=== PATIENT | female | born 1960 | race Caucasian/White ===

== ENCOUNTER 2017-11-11 11:00 | Outpatient (RCR) | payer OTHER, SELFPAY ==
--- NOTE | 2017-08-30 10:59 | HP.PTEVAL_ITS ---
Patient's Visit Information TRU FISCHER is a 57 year old F referred to Physical Therapy by Alexsander Soriano with a diagnosis of R knee traumatic arthropathy. TKA 08/27/18. Date of Evaluation: 08/30/17 Physical Therapist: Andrea Madsen, DPT, OC - Visit Plan Duration: 4-6 Weeks Plan: 3x/week for 6 weeks for patellar mobs, A/PROM, strength, gait training, stairs, progression off AD. Ice as needed. - Subjective Subjective: 08/27/17 had TKA R. surgery was delayed 2x. Injury 18 years ago in 1998 and knee hit tire. Had 9 years of synvisc adn years of cortisone. Had meniscal surgery. Not too young for TKA anymore. Surgery Wednesday, marisa t home Wednesday. Pain is off the charts. Is on oxycodone which doesn't touch pain. She will call doctor to get different meds. Percoset was working better in hospital. Doesn't feel like eating because of pain. Has ice moris at home and it feels good. Using it regularly. Using wh walker to get around. No AD needed prior to surgery. Steps was using L prior to surgery and was seeing chiropractor due to overuse of L LE. 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 Sleeping is not easy with pain but last night was better for 5 hours. Spasms in HS at times. Currently is at home with isabel who is taking care of her. Is getting a CPM machine for home. hands her the clothes and she puts them on. Has steps and is using L with rail. HEP AP, HS, QS. 2x/day. Wants to get back to riding Pierre. - Pain R knee pain Pain Intensity (Out of 10): 9 Pain Intensity Range: 6, 10 - Objective Walking with wh walker with R LE bending slightly, lacking ext at heel strike. Transfers with UE I. Steps subjectively reciprocally with L only and needs rail. Incision is dressed and appears dry. No excessive redness heat or swelling. AROM R knee -15 degrees of extension to 75 degrees flexion in supine and 80 sitting. 4 degree ext lag with SLR. Hip and ankle AROM and strength WFL at 4/5, knee strength R NT. L knee 4+/5 ext adn flexion and 0-140 aROM. - Goals Goal 1:: Sleep comfortably without waking 6 hours Goal Time Frame: 4-6 Weeks Goal 2:: AROM 0-110 without pain in R knee to faciltate ambulation and steps. Goal Time Frame: 4-6 Weeks Goal 3:: Walk community without AD without gait deviations. Goal Time Frame: 4-6 Weeks Goal 4:: Steps reciprocal without rail Goal Time Frame: 4-6 Weeks Goal 5:: Plan to return to work Goal Time Frame: 8-12 Weeks - Rehabilitation Potential Physical Therapy Diagnosis: s/p R TKA Rehabilitation Potential: Fair - Anticipated Interventions Patient/Client Instruction: Educate patient on: Condition For the Purpose of:: To decrease pain, To increase ROM, To improve muscle performance and motor function Therapeutic Exercise to Include: Strength training, Flexibilty training, Gait and locomotor training, Passive ROM, Active ROM For the Purpose of:: To decrease pain, To increase ROM, To improve muscle performance and motor function, To improve ability of physical actions for home/ community/work/leisure Manual Therapy Techniques to Include: Mobilization, Soft tissue mobilization Comment: patella For the Purpose of:: To increase ROM Cryotherapy (ice pack, ice massage): Yes For the Purpose of:: To increase ROM Thank you for the opportunity to evaluate your patient. For Medicare and Medicare HMO plans, please review the plan of care and approve it. It will need to be FAXED BACK to us at [phone] for Medicare purposes. Please let me know if there are questions or concerns regarding this plan of care. Physician Signature: Date:
--- NOTE | 2017-10-18 08:03 | HP.PTREVAL_ITS ---
Alexsander Soriano, It has been my pleasure to treat TRU FISCHER over the last 19 visits for R knee traumatic arthropathy. TKA 08/27/18. Please see the progress note below for an update on the physical therapy plan of care! Subjective: Good days and bad days. was in tears last night in R natarajan bone after gong down stairs. On feet the other day doing dishes and laundry and had to sit down due to R natarajan bone up by knee. Doctor told her he put a emmy in it which is why it hurts there so bad. Saw doc two weeks ago and doing really good. He was pleased. F/U again in November. Sleep is pretty good. Wakes up at night intermittently. Does all home activities but has to limit time a little bit. Cannot ride motorcycle as she does nto feel strong enough to hold bike up . Standing on right leg in shower to shave left is still challenging. HEP: doing stretches dily and knee xtension passive and felxion passive. prone knee ext. Not doing any strengthening at home. Has stopped SLR on own. Will go back to work in November sometime. 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 Objective/Function: PROM R Knee -3 to 115. Román. M -5 to 111. Steps reciprocal withotu rail but still weak on right. SLS is tolerable on R but less steady than L. Transfers I. Gait is good but lacks full ext at heel strike.OVERALL DOING WELL, ROM QUESTIONABLY IMPROVING AND PAIN STILLHIGHER THAN I WOULD LIKE BUT POSSIBLY DUE TO EMMY Plan Plan: recommend another two weeks to progress vickie humphrey focus on ROM. Rollout and STM to quad and HS, patellar mobs and PROM knee flex and ext. Luana ttempt to get approval. Goals Goal 1:: Sleep comfortably without waking 6 hours Goal Time Frame: 4-6 Weeks Goal Progress: Goal Met Goal 2:: AROM 0-110 without pain in R knee to faciltate ambulation and steps. Goal Time Frame: 4-6 Weeks Goal Progress: Progressing Goal 3:: Walk community without AD without gait deviations. Goal Time Frame: 4-6 Weeks Goal Progress: Goal Met Goal 4:: Steps reciprocal without rail Goal Time Frame: 4-6 Weeks Goal Progress: Goal Met Goal 5:: Plan to return to work Goal Time Frame: 8-12 Weeks Goal Progress: Progressing Anticipated Interventions Patient/Client Instruction: Educate patient on: Condition For the Purpose of:: To decrease pain, To increase ROM, To improve muscle performance and motor function Therapeutic Exercise to Include: Strength training, Flexibilty training, Gait and locomotor training, Passive ROM, Active ROM For the Purpose of:: To decrease pain, To increase ROM, To improve muscle performance and motor function, To improve ability of physical actions for home/ community/work/leisure Manual Therapy Techniques to Include: Mobilization, Soft tissue mobilization Comment: patella For the Purpose of:: To increase ROM Cryotherapy (ice pack, ice massage): Yes For the Purpose of:: To increase ROM Please do not hesitate to contact me at [phone] by phone or Fax: if you have questions or concerns regarding this new plan of care! Sincerely, Andrea Madsen, OSMINT, OC
--- NOTE | 2017-11-11 11:52 | HP.PTDCSUM ---
HP - PT D/C Summary It has been my pleasure to treat RTU FISCHER under orders from Alexsander Soriano, for the diagnosis of R knee traumatic arthropathy. TKA 08/27/18 for a total of 25 visit(s). Discharge Date: 11/11/17 Please see the following information for a summary of their discharge status. - Subjective Subjective: Good movement and pain is much better. Some pain after treatment earlier in week but was painfree for 5 days prior. Otherwise, no pain in a while. Road motorcycle for two hours Wednesday. Doing HEP daily. Sees doctor next . She feels ready to go back to work but not confident in the knee. Can dod riving but climbing up on truck is iffy. Home life is pretty normal. Sleeping is great. - Pain R knee pain Pain Intensity (Out of 10): 0 - Overall Improvement % Improvement: 90 - Objective Objective/Function: -1 to 112 aAROM and to 118 PROM. Steps reciprocally without rail. Walks normal without gait deviations. Step up onto 12 adn 18 inch box easily with one UE and just sligth R weakness. OVERALL DOING GREAT ADN READY TO WEAN BACK TO WORK FROM A CLINICAL STANDPOINT. [facility]NT[facility] HEP THROUGH ADN PAST DOCTOR F/U NEXT WEEK. - Goals Goal 1:: Sleep comfortably without waking 6 hours Goal Progress: Goal Met Goal 2:: AROM 0-110 without pain in R knee to faciltate ambulation and steps. Goal Progress: Goal Met Goal 3:: Walk community without AD without gait deviations. Goal Progress: Goal Met Goal 4:: Steps reciprocal without rail Goal Progress: Goal Met Goal 5:: Plan to return to work Goal Progress: Progressing - Plan Plan: D/C - D/C Information Discharge Comments: Pt doing well and has progressed nicely especially the last two weeks. Ready for D/C and doctor recheck for wean back to work. If there are questions or concerns regarding this patient's physical therapy, please feel free to call me at [phone]. Thank you for the referral of this patient. Sincerely, Andrea Madsen, DPT, OC
== END 2017-11-11 19:00 | disposition home or self-care (01) ==
LOC: PT 11:00
PROVIDERS: Visit Provider Orthopaedic Surgery
DX: M12.561 Traumatic arthropathy, right knee (principal); M25.561 Pain in right knee
CPT/HCPCS: 97110; 97140; 97162; 97530

== ENCOUNTER 2018-03-11 22:58 | Emergency (ER) | payer OTHER, SELFPAY ==
[2018-03-11 22:59] VITALS: BP 123/88; PULSE 84; RESP 14; TEMP 37.3; O2SAT 98; BMI 27.9
--- NOTE | 2018-03-11 23:16 | RAD_ITS ---
STUDY: X-RAY - RIGHT HAND REASON FOR EXAM: Female, 58 years old. Fall. Pain. TECHNIQUE: 3 view(s) of the hand. COMPARISON: None. FINDINGS: There is nondisplaced fracture of the fifth proximal phalanx without angulation. No other acute abnormalities. Normal radiocarpal articulation. Normal distal radioulnar joint. Normal visualized carpal bones. Normal carpal articulations Normal carpometacarpal articulation of the thumb. Normal second through fifth carpometacarpal joints. Normal metacarpi. Normal metacarpophalangeal joint of the thumb. Normal interphalangeal joint of the thumb. Normal proximal and distal phalanges of the thumb. Normal metacarpophalangeal joints of the second through fifth fingers. Normal proximal and distal interphalangeal joints of the second through fifth fingers. Normal phalanges of the second through fourth fingers. The soft tissue structures are unremarkable. RAD/Hand Min 3 Views IMPRESSION: There is nondisplaced fracture of the fifth proximal phalanx without angulation. Electronically Signed: Fred Batres MD at 23:35 EDT , Service support ,
--- NOTE | 2018-03-11 23:20 | ED.DCSUM_ITS ---
- ER Visit Summary Date of Service: 03/11/18 Chief Complaint: Right small finger injury at work History of Present Illness: The patient is a 58 F right-hand dominant. Tripped and fell at work injuring her right small finger. This occurred around 8 PM tonight. Denies other injuries. Did not hit her head. No LOC. No prior history of right hand injury. She has had prior right wrist carpal tunnel surgery. Physical Examination: Well-appearing middle-age female. No acute distress. Vital signs are stable and afebrile. HEENT exam atraumatic. C-spine nontender normal range of motion. Lungs clear to auscultation bilaterally. Chest wall nontender. Heart regular rate and rhythm. Abdomen soft nontender. Pelvic girdle intact. Back nontender. Neurologically she is awake and alert with no focal motor deficits. She is moving all 4 extremities. They are neurovascularly intact. The right shoulder, elbow, wrist are nontender. Normal range of motion. Her right hand there is tenderness to the right small finger along the proximal interphalangeal joint. The finger is diffusely tender. She can extend at 180 degrees. She has some flexion but is limited due to pain and swelling. Distally she has normal cap refill and touch sensation. Skin is intact. The rest of the right hand fingers and palm are nontender. Neurovascular intact. Test Results: Right hand x-ray 3 views shows a nondisplaced right small finger, proximal phalanx nondisplaced fracture. I went over the films with the patient. Emergency Department Course and Treatment: Aluminum splint to the right small finger. Med probe was in the ER evaluate the patient is time. Treatment Plan: Ice and elevate. Aluminum splint. Motrin for pain and swelling. Follow-up with med pro. Disposition: Discharge Impression: Acute right small finger, nondisplaced proximal phalanx fracture Fall at work Workers comp injury This note was generated with [employer] dictation software. It may contain incorrect words, spelling, and punctuation that were not noted in review of the chart prior to signing ED Disposition - Plan for ED Patient: Disposition: Home or Assisted Living Chief Complaint: Upper Extremity Injury Referrals: Andrea Hameed MD [Primary Care Provider] - As Needed [facility] [GROUP OF PHYSICIANS] - As soon as possible Additional Instructions: Ice and elevate right small finger to decrease pain and swelling. Motrin for pain and inflammation.
--- NOTE | 2018-03-11 23:20 | ED.DEP ---
ED Disposition - Plan for ED Patient: Disposition: Home or Assisted Living Chief Complaint: Upper Extremity Injury Instructions: ED Fx Finger Closed Referrals: Andrea Hameed MD [Primary Care Provider] - As Needed [facility] [GROUP OF PHYSICIANS] - As soon as possible Additional Instructions: Ice and elevate right small finger to decrease pain and swelling. Motrin for pain and inflammation. Aluminum splint for comfort and to protect the fractured right small finger.
== END 2018-03-11 23:55 | disposition home or self-care (01) ==
LOC: ED 23:25
PROVIDERS: Emergency Provider Emergency Medicine; Family Provider Family Medicine; PCP Family Medicine
DX: S62.646A Nondisplaced fracture of proximal phalanx of right little finger, initial encounter for closed fracture (principal); W01.0XXA Fall on same level from slipping, tripping and stumbling without subsequent striking against object, initial encounter; Y93.9 Activity, unspecified; Y92.9 Unspecified place or not applicable; Y99.0 Civilian activity done for income or pay; I25.10 Atherosclerotic heart disease of native coronary artery without angina pectoris; Z95.5 Presence of coronary angioplasty implant and graft; Z79.82 Long term (current) use of aspirin; Z79.899 Other long term (current) drug therapy; Z72.0 Tobacco use
CPT/HCPCS: 73130; 99283

== ENCOUNTER → 2018-07-18 06:45 | Outpatient (CLI) | payer OTHER, SELFPAY ==
[2018-07-04 09:56] VITALS: BMI 27.2
--- NOTE | 2018-07-18 09:26 | STRESSREP ---
Stress Test Report Exercise myocardial perfusion stress test. 58-year-old man with a history of coronary artery disease. 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 Medications: Amlodipine, aspirin, rosuvastatin. Stress protocol: Resting EKG demonstrates normal sinus rhythm with a rate of 60 bpm normal intervals are noted resting blood pressure 140/96 mmHg. The patient exercised according to regular Ruslan protocol for total duration of 5 minutes and 30 seconds the maximum heart rate attained was 155 bpm which was 95% of maximum predicted heart rate. Patient completed 2 minutes and 31 seconds into stage II of the Ruslan protocol. The patient maintained sinus rhythm with occasional premature ventricular complexes noted. At rest there were no ST or T wave changes noted suggest ischemia at peak exercise upsloping ST changes only were noted with normally the criteria for ischemia. No clinical angina was noted. The resting blood pressure was 146/90 6 m of mercury with a peak blood pressure 178/96 mmHg. Myocardial perfusion protocol. 11.3 mCi of technetium 99m sestamibi was injected at rest. The patient exercised according to Ruslan protocol for 5 minutes and 30 seconds attaining 95% of maximum predicted heart rate at peak exercise 33.3 mCi of technetium 99m sestamibi was injected stress images were obtained stress and rest images were reconstructed and compared in the short axis vertical long horizontal long axis. Gated images were also obtained next perfusion SPECT analysis: Review of the stress images demonstrate normal uptake of tracer noted in all areas of the myocardium. The resting images similarly demonstrate normal uptake of tracer noted in all areas of the myocardium. No areas of reversibility are noted suggest ischemia. Gated SPECT analysis: The gated ejection fraction is noted to be 56%. Conclusion: Normal exercise myocardial perfusion stress test at a moderate workload. No clinical angina noted. Preserved ejection fraction present.
[2018-07-18 10:24] LABS: AST(SGOT) 25 U/L (15-37); Alanine Aminotransfer ALT/SGPT 27 U/L (13-56); Albumin, Serum 3.6 g/dL (3.2-5.0); Alkaline Phosphatase 96 U/L (45-117); Bilirubin, Direct 0.08 mg/dL (0.00-0.30); Cholesterol 144 mg/dL (200); Globulin 3.5 g/dL (2.2-4.2); High Density Lipoprotein 50 mg/dL; Protein, Total 7.1 g/dL (6.4-8.2); Triglycerides 138 mg/dL; Very Low Density Lipoprotein 28 mg/dL (5-40)
== END ==
PROVIDERS: Family Provider Family Medicine; PCP Family Medicine; Referring Provider Physician Assistant Medical; Visit Provider Physician Assistant Medical
DX: I25.10 Atherosclerotic heart disease of native coronary artery without angina pectoris (principal); I10 Essential (primary) hypertension; E78.5 Hyperlipidemia, unspecified
CPT/HCPCS: 36415; 78452; 80061; 80076; 93017; A9500; A4216

== ENCOUNTER 2019-03-13 08:00 | Outpatient (RCR) | payer OTHER, SELFPAY ==
[2018-07-04 09:56] VITALS: BMI 27.2
--- NOTE | 2018-12-06 08:50 | HP.OTEVAL_ITS ---
Patient's Visit Information TRU FISCHER is a 58 year old F, referred to Occupational Therapy by ANNALISE MTZ, with a diagnosis of CMC Arthoplasty. Date of Evaluation: 12/06/18 Occupational Therapist: DARRELL Antoine/Aashish - Subjective Subjective: Arrived and noted original injury occured in August. She noted she works for [employer], and noted was 'pounding ears on the load head'. She noted she completed and noted increased pain in thumb thereafter. She was referred from NANCY Atkinson from [facility] for further follow up. She is 4 weeks post op from CMC arthroplasty. Comfort cool splint provided by doctor?s office and that was what she was wearing on arrival. - ADLs Dressing: Bra, Button shirt, Pants, Socks, Shoes Fasteners: Tie shoes, Buttons, [place] Bathing: Handle washcloth & soap, Squeeze shampoo bottle Toileting: Manage clothing Grooming: creative services designer Kitchen: Chop with knife, Peel fruits & vegetables, Open jars, Open bottle caps, Take dish out of oven, Load/unload field sales specialist Household: Laundry Comments: folding Yard: Mow lawn, [place], [place], Use shovel, Use pruners Miscellaneous: Open medication bottle, Handle money (change), Hold change, Take things out of wallet, Shuffle cards, Turn pages in book, Use power tools, Open doors/Including car door, Operate spray bottle, Operate aerosol cans, Pump gas, Drive, Function in drive through window Comments: Tru is L handed and is on light duty work. She is completing office based work. 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 - Pain Left thumb 4 Pain Intensity Range: 0, 8 - Objective Concerns: Please send over surgical report when convenient. - ROM Wrist: flexion R 0-77, L 0-68; extension R 0-39, L 0-45 CMC: opposition R 0-34, L 0-28 MP: R 0-48, L 0-30 IP: R -12-0-58, L -3-0-43 Radial Abduction: R 0-43, L 0-39 MP: WFL PIP: WFL DIP: WFL ROM Comments: Able to make loose composite fist. - Strength Marketing Project Lead: R 54, L 15 lbs- slight 2/10 Lateral Pinch: R 18, L held Tripod Pinch: R 14, L held Tip-to-Tip Pinch: R 9, L held Strength Comments: Will hold pinch measures until approximately 8 weeks post op. - Edema Proximal Phalanx: IF R 7.0 cm, L 7.0 cm - Sensation Sensation Comments: Denies numbness tingling. - Nine Hole Peg Right: 22.72 s Left: 35.63 s Comments: Completed with nonresistive pincer grasp for task; no pain. - In-Hand Manipulation Finger to Palm Translation: Normal - Right, Moderate - Left Palm to Finger Translation: Normal - Right, Moderate - Left Shift: Normal - Right, Mild - Left Rotation: Normal - Right, Mild - Left - Quick DASH-Disab of Arm,Shoulder& Hand Quick DASH Score: 65.0000 - Goals Goal:: Tru to increased L product development actuary strength to that of 60% of R product development actuary strength to promote increased strength, ROM, and ability to manipulate self-care and work related tasks 4/5 trials 80% of the time by d/c. Goal:: Tru to have not more than 1-2.10 pain with repetitive work-related and ADL takss 4/5 trials 80% of the time with use of pain management techniques , hot/cold, to manage symptoms by d/c. Goal:: Tru to be (I) to complete increased manipulation of small items like buttons to promote increased in hand manipulaton and finger dexterity skills 4/5 trials 80% of the time by d/c. Goal:: Tru to complete daily scar massage to help decrease sensitivity around scars 4/5 trials 80% of the time to promote increased ROM and decreased risk of hypertrophic scaring by d/c. Goal:: Tru to be mod I to complete correct ergonomics of L wrista nd hand to promote joint protection strategies and decrease risk of further injury 4/5 trials 80% if the time by d/c. Goal:: Tru to be (i) to return to all ADL/IADls including buttons and full duty work 4/5 trials 80% of the time to promote increased ability to complete ADL/IADls at OF by d/c. Goal:: Tru to complete daily PRE HEP to promote increased ROM, strength, and ability to manipulate self- care and work-related objects 4/5 trials 8)% of the time to promote increased strength needed to return to PLOF by d/c. Goal:: Tru to be able to complete fx pinch patterns at at least 60% of R pinch strength to promote increased ROM, Strength,and functional use of L hand 4/5 trials 80% of the time by d/c. - Rehabilitation General Assessment: Tru arrived on this date 12/06/18 of OT evaluation. She is 4 weeks post-op of CMC arthroplasty secondary due to work-related injury. She is working light duty at this time. She noted increased pain with light duty office tasks and forearm-based thumb spica fabricated to decrease pain and promote protection of L CMC post-surgery. She is to be in comfort cool from doctors when at home. Tru?s ROM is doing well but limitations remain and increased tenderness with palpation around lateral CMC scar. Strength is decreased, and sability to complete prior ADL/IADLS noted. 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 Rehabilitation Potential: Good - Anticipated Interventions Anticipated Interventions: A/AAROM/PROM, Strengthening, Edema Control, Scar Care, Massage, Sensory Retraining, Wound Care, Modalities, Orthoses, Joint Protection/Energy Conservation, Ergonomic Education, Dynamic Sitting Balance, Fine Motor Coord/Osmar, Neuro Reeducation, Visual/Perceptual Skills, Cognitive Skills, ADL Training, Caregiver Training, Home Program - Visit Plan Frequency: 2-3x /Week Duration: 6-8 General Plan: Tru to complete 2-3x weekly POC for 6-8 weeks. She was recommended by OT to complete twice weekly appointments for 6 weeks. POC to increased ROM, Strength with PRE, edema management, pain management, ergonomic training and joint protection, and general strength and conditioning when appropriate to return to full duty work and PLOF for all ADl/AIDLS. TEXT: Thank you for the opportunity to evaluate your patient. For Medicare and Medicare HMO plans, please review the plan of care and approve it. It will need to be FAXED BACK to us at [phone] for Medicare purposes. Please let me know if there are questions or concerns regarding this plan of care. Physician Signature: D ate:
--- NOTE | 2019-01-16 09:02 | HP.OTREVAL ---
ANNALISE MTZ, It has been my pleasure to treat TRU FISCHER over the last 12 visits for CMC Arthoplasty. Please see the progress note below for an update on the occupational therapy plan of care! Subjective: Arrived and noted put 150 miles on bike yesterday and feels hand has gotten stronger. Feels 75% back to PLOF. About 10 weeks post op. Objective/Function: COMPLETED NEW MEASUREMENTS ON THIS DATE 01/16/19: Wrist. - flexion R WFL, L 0-71. - extension R WFL, L 0-46. Thumb. - opposition R WFL, L 0-27. - MP R WFL, L 0-55. - IP R WFL, L -5-0-33. - Radial adduction: R WFL, L 0-53. Strength: wallpaper consultant R 53, L 39 lbs. lateral R 15,L 8 lbs. tripod R 12, L 7 lbs. pincer R 9, L 5 lbs. She has progressed since initial evaluation. MP joint integrity decreased and collapses with resistance. Continuing to work on intrinsic strength and ergonomic to promote strength and support of L thumb. Plan Frequency: 2x /Week Duration: 3 Weeks Visits in this POC: 18 Plan: Continue POC. Will continue PRE and stability of L thumb. Continue 2x week for next 3 weeks. She is to continue with intrinsic strengthening of thumb and will continue to add in additionally pinch strengthening techniques to promote returning to PLOF and decreasing pain. Goals - Goals Goal:: Tru to increased L wallpaper consultant strength to that of 60% of R wallpaper consultant strength to promote increased strength, ROM, and ability to manipulate self-care and work related tasks 4/5 trials 80% of the time by d/c. Goal:: Tru to have not more than 1-2.10 pain with repetitive work-related and ADL takss 4/5 trials 80% of the time with use of pain management techniques , hot/cold, to manage symptoms by d/c. Goal:: Tru to be (I) to complete increased manipulation of small items like buttons to promote increased in hand manipulaton and finger dexterity skills 4/5 trials 80% of the time by d/c. Goal:: Tru to complete daily scar massage to help decrease sensitivity around scars 4/5 trials 80% of the time to promote increased ROM and decreased risk of hypertrophic scaring by d/c. Goal:: Tru to be mod I to complete correct ergonomics of L wrista nd hand to promote joint protection strategies and decrease risk of further injury 4/5 trials 80% if the time by d/c. Goal:: Tru to be (i) to return to all ADL/IADls including buttons and full duty work 4/5 trials 80% of the time to promote increased ability to complete ADL/IADls at PLOF by d/c. Goal:: Tru to complete daily PRE HEP to promote increased ROM, strength, and ability to manipulate self- care and work-related objects 4/5 trials 8)% of the time to promote increased strength needed to return to PLOF by d/c. Goal:: Tru to be able to complete fx pinch patterns at at least 60% of R pinch strength to promote increased ROM, Strength,and functional use of L hand 4/5 trials 80% of the time by d/c. Anticipated Interventions Anticipated Interventions: A/AAROM/PROM, Strengthening, Edema Control, Scar Care, Massage, Sensory Retraining, Wound Care, Modalities, Orthoses, Joint Protection/Energy Conservation, Ergonomic Education, Dynamic Sitting Balance, Fine Motor Coord/Osmar, Neuro Reeducation, Visual/Perceptual Skills, Cognitive Skills, ADL Training, Caregiver Training, Home Program Please do not hesitate to contact me at [phone] by phone or if you have questions or concerns regarding this new plan of care! Sincerely, Idalia Antonio, OTR/L
--- NOTE | 2019-02-23 15:57 | OTREVAL_ITS ---
ANNALISE MTZ, It has been my pleasure to treat TRU FISCHER over the last 16 visits for CMC Arthoplasty. Please see the progress note below for an update on the occupational therapy plan of care! Subjective: Arrived and noted that today is last scheduled appointment. Noted doing well. She has not attended last two appointmets due to work. She feels 90% back to PLOF. Objective/Function: Reassessment completed on this date of 02/23/19 and is as follows: ROM: - MP R WFL, L -11-33. - IP R WFL, L -9-62. - radial adduction R WFL, L 0-46. - opposition: R WFL, L 0-24. Strength: - chinchilla farmer R 44, L 44 lbs. - lateral pinch R 13, L 10 lbs. - tripod pinch R 12, L 9 lbs. - pincer R 8, L 5 lbs. Increased MP collapse of L MP joint. Educated on joint integrity. Plan Frequency: 1x/Week Duration: 1x in 2 weeks. Visits in this POC: 18 Plan: Follow up 1x in 2 weeks. She is to work on MP stability exercsies for HEp as well as continue HEP as instructed. Additional taping methods to support CMC to decreased MP collapse completed today and she is to trial at home for work and bowling. Goals - Goals Goal:: Tru to increased L chinchilla farmer strength to that of 60% of R chinchilla farmer strength to promote increased strength, ROM, and ability to manipulate self-care and work related tasks 4/5 trials 80% of the time by d/c. Goal:: Tru to have not more than 1-2.10 pain with repetitive work-related and ADL takss 4/5 trials 80% of the time with use of pain management techniques , hot/cold, to manage symptoms by d/c. Goal:: Tru to be (I) to complete increased manipulation of small items like buttons to promote increased in hand manipulaton and finger dexterity skills 4/5 trials 80% of the time by d/c. Goal:: Tru to complete daily scar massage to help decrease sensitivity around scars 4/5 trials 80% of the time to promote increased ROM and decreased risk of hypertrophic scaring by d/c. Goal:: Tru to be mod I to complete correct ergonomics of L wrista nd hand to promote joint protection strategies and decrease risk of further injury 4/5 trials 80% if the time by d/c. Goal:: Tru to be (i) to return to all ADL/IADls including buttons and full duty work 4/5 trials 80% of the time to promote increased ability to complete ADL/IADls at PLOF by d/c. Goal:: Tru to complete daily PRE HEP to promote increased ROM, strength, and ability to manipulate self- care and work-related objects 4/5 trials 8)% of the time to promote increased strength needed to return to PLOF by d/c. Goal:: Tru to be able to complete fx pinch patterns at at least 60% of R pinch strength to promote increased ROM, Strength,and functional use of L hand 4/5 trials 80% of the time by d/c. Anticipated Interventions Anticipated Interventions: A/AAROM/PROM, Strengthening, Edema Control, Scar Care, Massage, Sensory Retraining, Wound Care, Modalities, Orthoses, Joint Protection/Energy Conservation, Ergonomic Education, Dynamic Sitting Balance, Fine Motor Coord/Osmar, Neuro Reeducation, Visual/Perceptual Skills, Cognitive Skills, ADL Training, Caregiver Training, Home Program Please do not hesitate to contact me at [phone] by phone or if you have questions or concerns regarding this new plan of care! Sincerely, DARRELL Antoine/L
--- NOTE | 2019-03-13 08:43 | HP.OTDCSUM_ITS ---
HP - OT D/C Summary It has been my pleasure to treat TRU FISCHER under orders from ANNALISE MTZ, for the diagnosis of CMC Arthoplasty for a total of 17 visit(s). Please see the following information for a summary of their discharge status. - Overall Improvement % Improvement: 60 - 90 last reassessment; 60 today. Has not been seen for 2 weeks as set by last POC. - Objective Objective/Function: Reassessment completed on this date as 1x appointment for two week follow- up from previous POC. Results as follows: Wrist: - flexion R WFL, L 0-77. - extension R WFL, 0-44. Thumb. - radial abduction R WFL, L 0- 46. - opposition R WFL, 0-30. - MP R WFL, L -13-0-40. - IP R WFL, L -10-0-58. Strength: R 49, L 43. Lateral R 14, L 12. Tripod R 12, L 9. Pincer R 9, L 7. Increased collapsing of L MP joint with functional pinch patterns. Consistently educated on taping and positioning techniques to decrease pain. - Goals Patient Goals: Regain Mobility, Regain Strength, Decrease Pain, Return to Work, Decrease Swelling/Stiffness, Improve Fine Motor Skills, Use Hand/Wrist/Arm Normally Again, Sleep Better, Decrease Tingling/Numbness, Increase ROM, Be More Independent in ADLS, Resume Former Household Responsibilities (Cooking,Cleaning,Yard, etc.), Resume Hobbies Goal:: Tru to increased L advertising operations coordinator strength to that of 60% of R advertising operations coordinator strength to promote increased strength, ROM, and ability to manipulate self-care and work related tasks 4/5 trials 80% of the time by d/c. Goal:: Tru to have not more than 1-2.10 pain with repetitive work-related and ADL takss 4/5 trials 80% of the time with use of pain management techniques , hot/cold, to manage symptoms by d/c. Goal:: Tru to be (I) to complete increased manipulation of small items like buttons to promote increased in hand manipulaton and finger dexterity skills 4/5 trials 80% of the time by d/c. Goal:: Tru to complete daily scar massage to help decrease sensitivity around scars 4/5 trials 80% of the time to promote increased ROM and decreased risk of hypertrophic scaring by d/c. Goal:: Tru to be mod I to complete correct ergonomics of L wrista nd hand to promote joint protection strategies and decrease risk of further injury 4/5 trials 80% if the time by d/c. Goal:: Tru to be (i) to return to all ADL/IADls including buttons and full duty work 4/5 trials 80% of the time to promote increased ability to complete ADL/IADls at PLOF by d/c. Goal:: Tru to complete daily PRE HEP to promote increased ROM, strength, and ability to manipulate self- care and work-related objects 4/5 trials 8)% of the time to promote increased strength needed to return to PLOF by d/c. Goal:: Tru to be able to complete fx pinch patterns at at least 60% of R pinch strength to promote increased ROM, Strength,and functional use of L hand 4/5 trials 80% of the time by d/c. - Plan Plan: Tru will be discharged on this date. She is unwilling to continue therapy. She was unhappy today with results as noted only 60% better but at last re-evaluation two weeks ago she was very happy where thumb was and noted herself to be 90% better. She has consistently been educated in KT taping techniques to promote stability of L thumb, HEP, and general techniques to decreased pain and promote ergonomics of L thumb. She has regained more than 60% of advertising operations coordinator strength as compared to R advertising operations coordinator and has consistently made progress with therapy. She is back to riding motorcycle, completed all work tasks and ADL/IADLs at [facility]. - D/C Information If there are questions or concerns regarding this patient's occupational therapy, please fell free to call me at [phone]. Thank you for the referral of this patient. Sincerely, Idalia Antonio, OTR/L
== END 2019-03-13 19:00 | disposition home or self-care (01) ==
LOC: OT 08:00
PROVIDERS: Family Provider Family Medicine; PCP Family Medicine
DX: S63.92XD Sprain of unspecified part of left wrist and hand, subsequent encounter (principal); M18.12 Unilateral primary osteoarthritis of first carpometacarpal joint, left hand; G89.18 Other acute postprocedural pain; Z47.89 Encounter for other orthopedic aftercare
CPT/HCPCS: 97110; 97140; 97166; 97168; 97530; 97760

== ENCOUNTER → 2019-06-05 10:15 | Outpatient (CLI) | payer OTHER, SELFPAY ==
[2019-06-05 13:08] LABS: Absolute Lymphocyte Count 2.23 X10^3/uL (0.83-4.51); Absolute Neutrophil Count 4.7 X10^3/uL (2.0-7.7); Basophil# 0.05 X10^3/uL; Basophil% 0.6 % (0-1); Eosinophil# 0.28 X10^3/uL; Eosinophils% 3.4 % (0-5); Hematocrit 41.4 % (37-47); Hemoglobin 13.9 g/dL (12.0-15.0); Lymphocyte # 2.23 X10^3/ul (4.0); Lymphocyte % 27.1 % (19-41); Mean Corp Hgb Conc 33.6 g/dL (32-36); Mean Corpuscular Hgb 34.1 pg (27.0-32.0); Mean Corpuscular Volume 101.5 fL (81-99); Mean Platelet Vol. 10.9 fl (6.2-12.0); Monocyte# 0.95 X10^3/uL; Monocyte% 11.5 % (0-10); NRBC Flagged by Analyzer 0 % (0-5); Platelet Count 278 K/mm3 (150-450); RBC Distribution Width CV 12.8 % (11.6-14.6); RBC Distribution Width SD 47.9 fl (35.1-43.9); Red Blood Count 4.08 M/mm3 (4.2-5.4); White Blood Count 8.2 K/mm3 (4.4-11.0)
[2019-06-05 13:31] LABS: AST(SGOT) 30 U/L (15-37); Alanine Aminotransfer ALT/SGPT 33 U/L (13-56); Albumin, Serum 3.7 g/dL (3.2-5.0); Alkaline Phosphatase 95 U/L (45-117); Anion Gap 4 (5-15); BUN 13 mg/dL (7-18); Calcium,Total 8.4 mg/dL (8.5-10.1); Chloride 108 mmol/L (98-107); Cholesterol 171 mg/dL (200); Creatinine, Serum 0.68 mg/dL (0.55-1.02); EST Glomerular Filtration Rate 94 mL/min (>60); Est Glom Filt Rate - Afr Amer 113 mL/min (>60); Free T3 2.6 pg/mL (2.18-3.98); Globulin 3.8 g/dL (2.2-4.2); Glucose 106 mg/dL (74-106); High Density Lipoprotein 49 mg/dL; Potassium 4.5 mmol/L (3.5-5.1); Protein, Total 7.5 g/dL (6.4-8.2); Sodium Level 140 mmol/L (136-145); T4 Free Direct 1.23 ng/dL (0.76-1.46); Thyroid Stim Hormone (TSH) 0.65 uIU/mL (0.358-3.74); Triglycerides 192 mg/dL; Very Low Density Lipoprotein 38 mg/dL (5-40)
[2019-06-20 11:55] VITALS: BMI 27.2
== END ==
PROVIDERS: Family Provider Family Medicine; PCP Family Medicine; Referring Provider Family Medicine; Visit Provider Family Medicine
DX: I25.10 Atherosclerotic heart disease of native coronary artery without angina pectoris (principal); E03.9 Hypothyroidism, unspecified; J44.9 Chronic obstructive pulmonary disease, unspecified
CPT/HCPCS: 36415; 80053; 80061; 84439; 84443; 84481; 85025

== ENCOUNTER → 2020-12-13 13:57 | Outpatient (CLI) | payer OTHER, SELFPAY ==
[2020-07-12 08:13] VITALS: BMI 27.3
[2020-12-13 15:45] LABS: AST(SGOT) 39 U/L (15-37); Alanine Aminotransfer ALT/SGPT 45 U/L (13-56); Albumin, Serum 3.9 g/dL (3.2-5.0); Alkaline Phosphatase 101 U/L (45-117); Bilirubin, Direct 0.13 mg/dL (0.00-0.30); Globulin 3.2 g/dL (2.2-4.2); Protein, Total 7.1 g/dL (6.4-8.2)
== END ==
PROVIDERS: PCP Family Medicine; Referring Provider Internal Medicine Rheumatology; Visit Provider Internal Medicine Rheumatology
DX: R74.8 Abnormal levels of other serum enzymes (principal)
CPT/HCPCS: 36415; 80076

== ENCOUNTER → 2021-04-15 07:28 | Outpatient (CLI) | payer OTHER, SELFPAY ==
[2021-04-15 10:21] LABS: AST(SGOT) 51 U/L (15-37); Alanine Aminotransfer ALT/SGPT 69 U/L (13-56); Albumin, Serum 3.9 g/dL (3.2-5.0); Alkaline Phosphatase 110 U/L (45-117); Bilirubin, Direct 0.17 mg/dL (0.00-0.30); Cholesterol 153 mg/dL (200); Globulin 3.8 g/dL (2.2-4.2); High Density Lipoprotein 62 mg/dL; Protein, Total 7.7 g/dL (6.4-8.2); Triglycerides 74 mg/dL; Very Low Density Lipoprotein 15 mg/dL (5-40)
== END ==
LOC: MTLAB 07:29
PROVIDERS: PCP Family Medicine; Referring Provider Internal Medicine Cardiovascular Disease; Visit Provider Internal Medicine Cardiovascular Disease
DX: E78.00 Pure hypercholesterolemia, unspecified (principal)
CPT/HCPCS: 36415; 80061; 80076

== ENCOUNTER → 2021-04-30 06:14 | Outpatient (CLI) | payer OTHER, SELFPAY ==
--- NOTE | 2021-04-30 13:28 | STRESSREP ---
Stress Test Report Exercise myocardial perfusion stress test. 61-year-old lady with a history of coronary artery disease DOT physical. Stress protocol: Resting EKG demonstrates sinus bradycardia with a rate of 51 bpm normal intervals are noted resting blood pressure is 138/82 mmHg. The patient exercised according to the regular Ruslan protocol for the total duration of 6 minutes completing stage II of the Ruslan protocol the maximum heart rate attained was 148 bpm which was 92% of max infected heart rate the maximum workload was 7 metabolic equivalents. The patient maintained sinus rhythm throughout the recording. At rest there were no ST or T wave changes noted to suggest ischemia and at peak exercise upsloping ST changes were noted with did not meet the criteria for ischemia. During recovery occasional premature ventricular complexes were noted which were asymptomatic. The peak blood pressure was 172/92 mmHg. Myocardial perfusion protocol. 11.4 mCi of technetium 99m sestamibi was injected at rest. The patient exercised according to regular Ruslan protocol for 6 minutes. At peak exercise 32.8 mCi of sestamibi was injected at rest. Stress and rest images were reconstructed and compared in the short axis vertical long and horizontal long axis. Gated images were also obtained. Perfusion SPECT analysis: Review of the stress images demonstrate normal uptake of tracer noted in all areas of the myocardium. The resting images similarly demonstrate normal uptake of tracer noted in all areas of the myocardium. No areas of reversibility are noted to suggest ischemia and no previous infarct is noted. Gated SPECT analysis: The gated ejection fraction is 61%. Conclusion: Normal exercise myocardial perfusion stress test at a moderate workload. Preserved ejection fraction.
== END ==
PROVIDERS: PCP Family Medicine; Referring Provider Physician Assistant Medical; Visit Provider Physician Assistant Medical
DX: I25.10 Atherosclerotic heart disease of native coronary artery without angina pectoris (principal); E78.00 Pure hypercholesterolemia, unspecified; Z95.5 Presence of coronary angioplasty implant and graft
CPT/HCPCS: 78452; 93017; A9500; A4216

== ENCOUNTER → 2022-01-29 | Outpatient (CLI) | payer OTHER, SELFPAY ==
[2022-01-29 16:34] LABS: Anion Gap 7 (5-15); BUN 13 mg/dL (7-18); BUN/Creat Ratio 20.7 RATIO (10-20); Calcium,Total 9.2 mg/dL (8.5-10.1); Chloride 93 mmol/L (98-107); Creatinine, Serum 0.63 mg/dL (0.55-1.02); EST Glomerular Filtration Rate 102 mL/min (>60); Est Glom Filt Rate - Afr Amer 124 mL/min (>60); Glucose 87 mg/dL (74-106); Potassium 4.2 mmol/L (3.5-5.1); Sodium Level 126 mmol/L (136-145)
== END | disposition home or self-care (01) ==
LOC: LAB 15:36
PROVIDERS: PCP Family Medicine; Visit Provider Physician Assistant Medical
DX: I10 Essential (primary) hypertension (principal)
CPT/HCPCS: 36415; 80048

== ENCOUNTER → 2023-02-05 | Outpatient (CLI) | payer OTHER, SELFPAY ==
[2023-02-05 10:38] LABS: AST(SGOT) 30 U/L (15-37); Alanine Aminotransfer ALT/SGPT 37 U/L (13-56); Albumin, Serum 3.9 g/dL (3.2-5.0); Alkaline Phosphatase 97 U/L (45-117); Bilirubin, Direct 0.12 mg/dL (0.00-0.30); Cholesterol 142 mg/dL (200); Globulin 4.1 g/dL (2.2-4.2); High Density Lipoprotein 59 mg/dL; Triglycerides 178 mg/dL; Very Low Density Lipoprotein 36 mg/dL (5-40)
== END | disposition home or self-care (01) ==
LOC: LAB 08:51
PROVIDERS: PCP Family Medicine; Referring Provider Internal Medicine Cardiovascular Disease; Visit Provider Internal Medicine Cardiovascular Disease
DX: E78.00 Pure hypercholesterolemia, unspecified (principal)
CPT/HCPCS: 36415; 80061; 80076

== ENCOUNTER → 2023-03-04 | Outpatient (CLI) | payer OTHER, SELFPAY ==
[2023-03-04 15:29] LABS: Absolute Lymphocyte Count 2.43 X10^3/uL (0.83-4.51); Absolute Neutrophil Count 5.8 X10^3/uL (2.0-7.7); Basophil# 0.06 X10^3/uL; Basophil% 0.6 % (0-1); Eosinophil# 0.13 X10^3/uL; Eosinophils% 1.4 % (0-5); Hematocrit 42.7 % (37-47); Hemoglobin 14.6 g/dL (12.0-15.0); Lymphocyte # 2.43 X10^3/ul (0.83-4.51); Mean Corp Hgb Conc 34.2 g/dL (32-36); Mean Corpuscular Hgb 34.9 pg (27.0-32.0); Mean Corpuscular Volume 102.2 fL (81-99); Mean Platelet Vol. 10.3 fl (6.2-12.0); Monocyte# 0.95 X10^3/uL; Monocyte% 10.2 % (0-10); NRBC Flagged by Analyzer 0 % (0-5); Neutrophil # 5.75 X10^3/uL (2.7-7.7); Neutrophil % 61.6 % (47-70); Platelet Count 336 K/mm3 (150-450); RBC Distribution Width CV 13.2 % (11.6-14.6); RBC Distribution Width SD 50.2 fl (35.1-43.9); Red Blood Count 4.18 M/mm3 (4.2-5.4); White Blood Count 9.3 K/mm3 (4.4-11.0)
[2023-03-04 15:47] LABS: AST(SGOT) 34 U/L (15-37); Alanine Aminotransfer ALT/SGPT 38 U/L (13-56); Albumin, Serum 4.1 g/dL (3.2-5.0); Alkaline Phosphatase 101 U/L (45-117); Anion Gap 5 (5-15); BUN 12 mg/dL (7-18); BUN/Creat Ratio 18.4 RATIO (10-20); Calcium,Total 9.1 mg/dL (8.5-10.1); Chloride 108 mmol/L (98-107); Creatinine, Serum 0.65 mg/dL (0.55-1.02); EST Glomerular Filtration Rate 98 mL/min (>60); Est Glom Filt Rate - Afr Amer 118 mL/min (>60); Globulin 4.1 g/dL (2.2-4.2); Glucose 93 mg/dL (74-106); Potassium 4.3 mmol/L (3.5-5.1); Protein, Total 8.2 g/dL (6.4-8.2); Sodium Level 139 mmol/L (136-145); T4 Free Direct 0.88 ng/dL (0.76-1.46); Thyroid Stim Hormone (TSH) 3.63 uIU/mL (0.358-3.74)
[2023-03-04 15:53] LABS: Erythrocyte Sedimentation Rate 15 mm/hr (0-30)
== END | disposition home or self-care (01) ==
LOC: MFPLAB 12:18
PROVIDERS: PCP Family Medicine; Visit Provider Family Medicine
DX: J84.9 Interstitial pulmonary disease, unspecified (principal); M34.9 Systemic sclerosis, unspecified
CPT/HCPCS: 36415; 80053; 84439; 84443; 85025; 85652

== ENCOUNTER → 2023-03-08 | Outpatient (CLI) | payer OTHER, SELFPAY ==
--- NOTE | 2023-03-08 16:18 | STRESSREP ---
Stress Test Report Date: 03/08/2023 Procedure: Exercise tolerance test/imaging study Indications: Preop evaluation Consent: Per the patient Procedure: The patient exercised on a Ruslan protocol for 8 minutes achieving a peak heart rate of 146 bpm (92% predicted maximal heart rate) with a peak blood pressure 190/96 mmHg and a peak MET capacity of 10.1 METs. The baseline ECG demonstrated sinus rhythm. The peak exercise ECG demonstrated no ischemic changes. Rare PVCs noted during recovery. The functional capacity was considered good. There was no complaint of chest discomfort during exercise or recovery. The examination was discontinued secondary to target heart rate being achieved. The patient was injected with 10.8 mCi of technetium 99m Cardiolite and subsequently rest SPECT Cardiolite nuclear imaging was obtained in the horizontal long, vertical long, and short axis views. Post-exercise, the patient was injected with 33.7 mCi of technetium 99m Cardiolite and subsequently stress SPECT Cardiolite nuclear imaging was obtained in the horizontal long, vertical long, and short axis views. A gated Cardiolite study at peak stress was obtained. Rest and stress SPECT Cardiolite nuclear imaging status post realignment, normalization, and attenuation correction, demonstrates moderate size reversible perfusion defect of the inferior wall and apex. There is end systolic thickening and brightening. The gated Cardiolite study demonstrates myocardial thickening and inward wall motion. The reported LVEF is 54%. Impression: 1. Technically adequate (percent predicted maximal heart rate greater than 85%) exercise tolerance test 2. Peak exercise ECG with no ischemic changes 3. Rare PVCs noted in recovery 4. Rest and stress SPECT Cardiolite nuclear imaging demonstrate moderate inferior and apical reversible perfusion defect suggestive of ischemia. 5. The gated Cardiolite study reports an LVEF of 54%. This note was generated with [employer] software. It may contain incorrect words, spelling, and punctuation that were not noted in checking the note before signing.
== END | disposition home or self-care (01) ==
PROVIDERS: PCP Family Medicine; Referring Provider Nurse Practitioner Gerontology; Visit Provider Nurse Practitioner Gerontology
DX: Z95.5 Presence of coronary angioplasty implant and graft (principal)
CPT/HCPCS: 78452; 93017; A9500; A4216

== ENCOUNTER → 2023-03-10 | Outpatient (CLI) | payer OTHER, SELFPAY ==
--- NOTE | 2023-03-10 13:18 | US_ITS ---
EXAM: US SOFT TISSUES OF THE NECK CLINICAL INDICATION: MASS OF LATERAL NECK TECHNIQUE: Real-time ultrasound scan of the soft tissues of the neck with image documentation. COMPARISON: No relevant prior studies available. FINDINGS: SOFT TISSUES: Unremarkable. No abscess. No foreign body. LYMPH NODES: Images are obtained in the right lateral neck in the region of palpable abnormality. There is a 0.9 x 0.35 cm hypoechoic structure with an echogenic hilum compatible with a lymph node. US/Head/Neck Soft Tissue IMPRESSION: Lymph node within the right lateral neck in the region of a palpable abnormality. No other abnormalities are seen. Electronically Signed: Luis E Chamberlain MD at 17:44 EDT ,
== END | disposition home or self-care (01) ==
LOC: US 13:17
PROVIDERS: PCP Family Medicine; Referring Provider Family Medicine; Visit Provider Family Medicine
DX: R22.1 Localized swelling, mass and lump, neck (principal)
CPT/HCPCS: 76536

== ENCOUNTER → 2023-03-19 | Day surgery (SDC) | payer OTHER, SELFPAY ==
--- NOTE | 2023-03-10 13:21 | RAD_ITS ---
STUDY: X-RAY CHEST REASON FOR EXAM: Female, 63 years old. Evaluation prior to cardiac catheterization. TECHNIQUE: Frontal and lateral views of the chest. COMPARISON: None. FINDINGS: Hyperinflation. There is no demonstrated pleural abnormality. Borderline cardiomegaly. Normal mediastinum and rafal. Normal visualized pulmonary arteries. Aortic tortuosity and calcification Mild diffuse thoracic spondylosis. Normal visualized ribs, clavicles, and shoulders. No abnormality of the visualized soft tissue structures of the upper abdomen. RAD/Chest PA and Lateral IMPRESSION: Borderline cardiomegaly with hyperinflation and no acute or active cardiopulmonary disease. Electronically Signed: Alvarez Osorio MD at 13:39 EDT ,
[2023-03-18 08:07] VITALS: BMI 25.0
--- NOTE | 2023-03-19 08:48 | CL.D_ITS ---
Patient Name: TRU FISCHER Study Date: 03/19/2023 Performing: Gene Parsons MD Ht: 67 inches 170.18 cm : 1960 Wt: 159.99 lbs 72.57 kg Age: 63 Gender: female BSA: 1.84 PROCEDURE(S) PERFORMED DC01-(03450)LHC/COR/LV CLINICAL PROFILE AND INDICATIONS Indications: Suspected CAD Heart Failure: None Stress/Imaging Date: 03/05/23 CAD Presentations: No Sxs, no angina. CONCLUSIONS Non obstructive coronary arteries This vessel was previously stented and the stent is patent with approximately 30 to 40% in-stent stenosis. RECOMMENDATIONS Medical therapy DESCRIPTION OF PROCEDURE The patient arrived to the procedure lab. The risks and benefits of the procedure as well as a full description of our services here and current unavailability of surgical backup were fully explained to the patient and/or their significant other prior to the catheterization. The Timeout was completed, verifying the correct patient and procedure. The patient's procedural site was prepped and draped in the usual fashion. Local anesthetic was given subcutaneously to right radial region with Lidocaine 2%. Using a modified Seldinger technique, arterial access was obtained via the right radial artery, a 6Fr sheath was inserted. Left Coronary Artery selective angiography was performed in multiple views using a 5 Fr. 4.0 Langley catheter. Right Coronary Artery selective angiography was then performed in multiple views using a 5 Fr. 4.0 Langley catheter. Left Ventriculography was performed in MATSON projection using a 5 Fr. Pigtail catheter. LV to AO pullback pressures were then recorded.The arterial sheath was pulled and a TR Band was applied for hemostasis w/ 10ml air CORONARY ANGIOGRAPHY DOMINANCE: Right Dominant LEFT HEART ASSESSMENT Left Ventricular Ejection Fraction: by LV Gram 55 % Normal LV wall motion Normal Left Ventricular systolic function LEFT MAIN: Angiographically normal LEFT ANTERIOR DESCENDING ARTERY: Mild luminal irregularities DIAGONAL 1: Proximal - Moderate calcification, Proximal - Moderate luminal irregularities up to 50% CIRCUMFLEX ARTERY: Mild luminal irregularities OM 1: Proximal - Moderate luminal irregularities up to 50% RIGHT CORONARY ARTERY: This vessel was previously stented and the stent is patent with approximately 30 to 40% in-stent stenosis. COMPLICATIONS No Complications PROCEDURE MEDICATIONS Versed 1 mg IV Fentanyl 50 mcg IV Versed 1 mg IV Oxygen: 2 L/min via nasal cannula Benadryl 50 mg IV @ 03/19/2023 08:08:46 Heparin given IA 03/19/2023 08:19:26 Plavix 75 mg PO 03/19/2023 07:25:01 Solu-medrol 125 mg IV 03/19/2023 08:08:37 SUMMARY OF HEMODYNAMIC DATA Time AIR REST ECG 07:18:14 Art 122/72 (88) 08:21:30 LV 132/10, 14 08:32:46 LV 124/7, 13 08:32:49 LV 126/7, 11 08:33:14 LV 127/6, 13 08:33:20 LVp 126/7, 13 08:33:30 AOp 136/70 (100) 08:33:35 08:45:42 Signed By Gene Parsons MD On 03/19/2023 08:48:37 Signed By Gene Parsons MD On 03/19/2023 08:47:54 Gene Parsons MD
== END | disposition home or self-care (01) ==
PROVIDERS: PCP Family Medicine; Referring Provider Internal Medicine Cardiovascular Disease; Visit Provider Internal Medicine Cardiovascular Disease
DX: I25.10 Atherosclerotic heart disease of native coronary artery without angina pectoris (principal); I25.2 Old myocardial infarction; F17.200 Nicotine dependence, unspecified, uncomplicated; E78.00 Pure hypercholesterolemia, unspecified; I10 Essential (primary) hypertension; Z79.82 Long term (current) use of aspirin; Z79.01 Long term (current) use of anticoagulants; Z79.899 Other long term (current) drug therapy; Z95.5 Presence of coronary angioplasty implant and graft
CPT/HCPCS: 71046; 93458; 99152; 99153; J7040; C1769; C1894; Q9967

== ENCOUNTER → 2023-11-09 | Outpatient (CLI) | payer OTHER, SELFPAY ==
[2023-11-09 10:55] LABS: T4 Free Direct 1.25 ng/dL (0.76-1.46)
== END | disposition home or self-care (01) ==
LOC: MFPLAB 08:43
PROVIDERS: PCP Family Medicine; Visit Provider Family Medicine
DX: E03.9 Hypothyroidism, unspecified (principal)
CPT/HCPCS: 36415; 84439; 84443

== ENCOUNTER → 2024-02-29 | Outpatient (CLI) | payer OTHER, SELFPAY ==
--- NOTE | 2024-02-29 09:11 | RAD_ITS ---
STUDY: X-RAY - UNILATERAL RIBS ( LEFT ) WITH CHEST REASON FOR EXAM: Female, 64 years old. Left chest wall pain -- s/p trauma TECHNIQUE - RIBS: 4 view(s) of the ribs. TECHNIQUE - CHEST: Single PA view of the chest. COMPARISON: Comparison is made with prior study March 10, 2023. FINDINGS - RIBS: Normal visualized ribs without a demonstrated fracture. FINDINGS - CHEST: Increased linear markings at the lung bases worse on the right side suggestive of bibasilar atelectasis. Hyperinflation. There is no demonstrated pleural abnormality. Normal size heart. Normal mediastinum and rafal. Normal visualized pulmonary arteries. There is atherosclerotic calcification of the aortic arch with tortuosity. Normal visualized thoracic spine. Normal visualized ribs, clavicles, and shoulders. There is no demonstrated abnormality of the visualized soft tissue structures of the upper abdomen. RAD/Ribs Uni Min 3V w/PA Chest IMPRESSION: RIBS: Normal x-ray examination of the ribs. CHEST: Hyperinflation. Increased linear markings at the lung bases suggestive of bibasilar linear atelectasis. Electronically Signed: Cortez Solomon MD at 10:47 EDT ,
== END | disposition home or self-care (01) ==
LOC: MTRAD 09:11
PROVIDERS: PCP Family Medicine; Referring Provider Physician Assistant; Visit Provider Physician Assistant
DX: R07.81 Pleurodynia (principal)
CPT/HCPCS: 71101

== ENCOUNTER → 2024-04-28 | Outpatient (CLI) | payer OTHER, SELFPAY ==
[2024-04-28 12:33] LABS: Absolute Lymphocyte Count 2.65 X10^3/uL (0.83-4.51); Absolute Neutrophil Count 7.5 X10^3/uL (2.0-7.7); Basophil# 0.06 X10^3/uL; Basophil% 0.5 % (0-1); Eosinophil# 0.21 X10^3/uL; Eosinophils% 1.8 % (0-5); Hematocrit 41.2 % (37-47); Hemoglobin 14.1 g/dL (12.0-15.0); Lymphocyte # 2.65 X10^3/ul (0.83-4.51); Lymphocyte % 23.1 % (19-41); Mean Corp Hgb Conc 34.2 g/dL (32-36); Mean Corpuscular Volume 99.3 fL (81-99); Mean Platelet Vol. 10.7 fl (6.2-12.0); Monocyte# 1.03 X10^3/uL; NRBC Flagged by Analyzer 0 % (0-5); Neutrophil # 7.46 X10^3/uL (2.7-7.7); Neutrophil % 65.3 % (47-70); Platelet Count 359 K/mm3 (150-450); RBC Distribution Width CV 12.8 % (11.6-14.6); RBC Distribution Width SD 47.2 fl (35.1-43.9); Red Blood Count 4.15 M/mm3 (4.2-5.4); White Blood Count 11.5 K/mm3 (4.4-11.0)
[2024-04-28 15:45] LABS: ALB/GLOB Ratio 0.9 RATIO (0.9-2.4); AST(SGOT) 36 U/L (15-37); Alanine Aminotransfer ALT/SGPT 36 U/L (13-56); Albumin, Serum 3.8 g/dL (3.2-5.0); Alkaline Phosphatase 120 U/L (45-117); Anion Gap 5 (5-15); BUN 9 mg/dL (7-18); Calcium,Total 9.1 mg/dL (8.5-10.1); Chloride 104 mmol/L (98-107); Cholesterol 148 mg/dL (200); Creatinine, Serum 0.75 mg/dL (0.55-1.02); EST Glomerular Filtration Rate 83 mL/min (>60); Est Glom Filt Rate - Afr Amer 101 mL/min (>60); Free T3 2.3 pg/mL (2.18-3.98); Globulin 4.2 g/dL (2.2-4.2); Glucose 85 mg/dL (74-106); High Density Lipoprotein 68 mg/dL; Potassium 4.4 mmol/L (3.5-5.1); Sodium Level 134 mmol/L (136-145); T4 Free Direct 1.11 ng/dL (0.76-1.46); Triglycerides 153 mg/dL; Very Low Density Lipoprotein 31 mg/dL (5-40)
== END | disposition home or self-care (01) ==
LOC: MFPLAB 11:11
PROVIDERS: PCP Family Medicine; Visit Provider Family Medicine
DX: E03.9 Hypothyroidism, unspecified (principal); J44.9 Chronic obstructive pulmonary disease, unspecified; I25.10 Atherosclerotic heart disease of native coronary artery without angina pectoris
CPT/HCPCS: 36415; 80053; 80061; 84439; 84443; 84481; 85025

== ENCOUNTER → 2024-10-27 | Outpatient (CLI) | payer BC, SELFPAY ==
[2024-10-27 10:33] LABS: Absolute Neutrophil Count 7.4 X10^3/uL (2.0-7.7); Basophil# 0.05 X10^3/uL; Basophil% 0.4 % (0-1); Eosinophil# 0.23 X10^3/uL; Hematocrit 41.3 % (37-47); Hemoglobin 14.3 g/dL (12.0-15.0); Lymphocyte % 24.1 % (19-41); Mean Corp Hgb Conc 34.6 g/dL (32-36); Mean Corpuscular Hgb 33.8 pg (27.0-32.0); Mean Corpuscular Volume 97.6 fL (81-99); Monocyte# 1.08 X10^3/uL; Monocyte% 9.3 % (0-10); NRBC Flagged by Analyzer 0 % (0-5); Neutrophil # 7.43 X10^3/uL (2.7-7.7); Neutrophil % 63.9 % (47-70); Platelet Count 333 K/mm3 (150-450); RBC Distribution Width CV 12.9 % (11.6-14.6); RBC Distribution Width SD 46.4 fl (35.1-43.9); Red Blood Count 4.23 M/mm3 (4.2-5.4); White Blood Count 11.6 K/mm3 (4.4-11.0)
[2024-10-27 10:55] LABS: ALB/GLOB Ratio 1.4 RATIO (0.9-2.4); AST(SGOT) 39 U/L (<=31); Alanine Aminotransfer ALT/SGPT 35 U/L (<=34); Albumin, Serum 4.5 g/dL (3.4-4.8); Alkaline Phosphatase 114 U/L (35-104); Anion Gap 10 (5-15); BUN 12 mg/dL (4-19); BUN/Creat Ratio 18.2 RATIO (10-20); Calcium,Total 9.4 mg/dL (7.6-11.0); Carbon Dioxide 23.1 mmol/L (21.0-32.0); Chloride 101 mmol/L (98-108); Creatinine, Serum 0.68 mg/dL (0.70-1.20); EST Glomerular Filtration Rate 98 (>60); Globulin 3.2 g/dL (2.2-4.2); Glucose 93 mg/dL (70-99); Potassium 4.8 mmol/L (3.3-5.1); Protein, Total 7.7 g/dL (5.9-8.4); Sodium Level 135 mmol/L (133-145); Total Bilirubin 0.44 mg/dL (0.00-1.30)
[2024-10-27 10:59] LABS: CRP < 3.00 mg/L (0.0-3.0)
[2024-10-27 11:53] LABS: Microalbumin,Random Urine < 12.0 mg/L (NO RANGE EST.); Microalbumin:Creatinine Ratio UNABLE TO CALCULATE mg/g CRE
== END | disposition home or self-care (01) ==
LOC: MFPLAB 08:41
PROVIDERS: PCP Family Medicine; Referring Provider Family Medicine; Visit Provider Family Medicine
DX: M34.9 Systemic sclerosis, unspecified (principal); I25.10 Atherosclerotic heart disease of native coronary artery without angina pectoris
CPT/HCPCS: 36415; 80053; 82043; 82570; 85025; 86140